=== PATIENT | female | born 1990 | race Hispanic/Latino ===

== ENCOUNTER 2021-07-17 12:57 | Outpatient (CLI) | payer OTHER | END 2021-07-17 12:58 | disposition home or self-care (01) | LOC: BICRAD 12:57 | PROVIDERS: ATTEND Internal Medicine | DX: Z02.71 Encounter for disability determination (principal); M41.9 Scoliosis, unspecified | CPT/HCPCS: 72072; 72100 ==

== ENCOUNTER 2024-09-15 09:04 | Outpatient (CLI) | payer BC | END 2024-09-15 09:05 | disposition home or self-care (01) | LOC: LABBT 09:04 | PROVIDERS: ATTEND Neurological Surgery | DX: Z01.810 Encounter for preprocedural cardiovascular examination (principal); M48.061 Spinal stenosis, lumbar region without neurogenic claudication | CPT/HCPCS: 93005; 93010 ==

== ENCOUNTER 2024-09-22 06:41 | Day surgery (SDC) | payer BC ==
[2024-09-15 09:45] VITALS: BMI 45.7
[2024-09-22] MEDS ORDERED: Thrombin 5000 UNITS/5 ML VIAL ONE (06:52)
[2024-09-22] MEDS ORDERED: PROPOFOL 20 ML ONE (07:10)
[2024-09-22] MEDS ORDERED: fentaNYL PF 100 MCG/2 ML SYRINGE ONE (07:10)
[2024-09-22] MEDS ORDERED: SUGAMMADEX SODIUM 200 MG/2 ML VIAL ONE ×2 (07:10→09:47)
[2024-09-22] MEDS ORDERED: CEFAZOLIN 1 GM VIAL ONE ×2 (07:10→07:11)
[2024-09-22] MEDS ORDERED: PHENYLEPHRINE-NS 100 MCG/ML 10 ML SYRINGE ONE (07:10)
[2024-09-22] MEDS ORDERED: Lidocaine 2% PF 100 mg/5 ml Syringe ONE (07:10)
[2024-09-22] MEDS ORDERED: Rocuronium Bromide 10 MG/ML (10ML VIAL) ONE (07:10)
[2024-09-22] MEDS ORDERED: LevoFLOXacin D5W 500 mg (100 mL) BAG ONE (07:55)
[2024-09-22] MEDS ORDERED: Ondansetron PF 4 MG/2 ML Vial ONE (08:37)
[2024-09-22] MEDS ORDERED: Ketorolac Tromethamine 30 MG (1 mL) VIAL ONE (08:37)
[2024-09-22] MEDS ORDERED: HYDROcodone/Acetaminophen 5/325 mg Tablet ONE (11:31)
== END 2024-09-22 13:00 | disposition home or self-care (01) ==
LOC: SDC 06:41
PROVIDERS: ATTEND Neurological Surgery
PROC: 01NB0ZZ Release Lumbar Nerve, Open Approach (ICD-10-PCS; principal; 2024-09-22)
DX: M71.38 Other bursal cyst, other site (principal); M54.16 Radiculopathy, lumbar region; G90.1 Familial dysautonomia [Riley-Day]; F32.A Depression, unspecified; Z88.8 Allergy status to other drugs, medicaments and biological substances; Z88.0 Allergy status to penicillin; Z91.012 Allergy to eggs; Z79.899 Other long term (current) drug therapy
CPT/HCPCS: J0169; J0665; J0690; J1100; J1885; J1956; J2003; J2250; J2405; J2704; J3010; J3490